=== PATIENT | female | born 1985 | race Caucasian/White ===

== ENCOUNTER 2021-10-14 12:46 | Emergency (ER) | payer OTHER | END 2021-10-14 14:11 | disposition home or self-care (01) | LOC: MADERS 12:46 | DX: S20.214A Contusion of middle front wall of thorax, initial encounter (principal); J45.909 Unspecified asthma, uncomplicated; V43.52XA Car driver injured in collision with other type car in traffic accident, initial encounter; W22.11XA Striking against or struck by driver side automobile airbag, initial encounter; Z79.899 Other long term (current) drug therapy; Z79.82 Long term (current) use of aspirin | CPT/HCPCS: 71045; 93005 ==